=== PATIENT | female | born 1955 | race Caucasian/White ===

== ENCOUNTER 2024-02-07 21:49 | Emergency (ER) | payer BC ==
[~2024-02-07] VITALS: Ht 162.6 cm; Wt 48.1 kg
[2024-02-07] MEDS ORDERED: ONDANSETRON 4 MG/2 ML VIAL ONE (22:00)
[2024-02-07 22:15] LABS: BASOPHILS # (AUTO) 0.1 K/UL (0.0-0.2); BASOPHILS % (AUTO) 1.2 % (0.0-2.0); EOSINOPHILS # (AUTO) 0.1 K/uL (0.0-0.7); EOSINOPHILS % (AUTO) 1.1 % (0.0-7.0); HEMATOCRIT 41.4 % (31.2-41.9); HEMOGLOBIN 13.5 g/dL (10.9-14.3); LYMPHOCYTES % (AUTO) 29.1 % (20.5-51.5); MEAN CORPUSCULAR HEMOGLOBIN 30.4 uug (24.7-32.8); MEAN CORPUSCULAR HGB CONC 33 g/dL (32.3-35.6); MEAN CORPUSCULAR VOLUME 93.1 fL (75.5-95.3); MONOCYTES # (AUTO) 0.2 K/uL (0.1-1.30); MONOCYTES % (AUTO) 3.3 % (0.0-11.0); NEUTROPHILS # (AUTO) 4.5 K/uL (1.8-8.9); NEUTROPHILS % (AUTO) 65.3 % (38.5-71.5); PLATELET COUNT (AUTO) 273 K/uL (179-408); RED BLOOD CELL COUNT(AUTO) 4.44 MIL/uL (3.63-4.92); RED CELL DISTRIBUTION WIDTH 14.2 % (12.3-17.7); WHITE BLOOD COUNT (AUTO) 6.8 K/uL (3.8-11.8)
[2024-02-07] MEDS: ONDANSETRON 4 MG/2 ML VIAL IV ONE (22:18)
[2024-02-07] MEDS: IV NORMAL SALINE 1000 ML BAG IV ONE ×2 (22:18→23:16)
[2024-02-07 22:22] LABS: DIFFERENTIAL COMMENT 1
[2024-02-07 22:24] LABS: CREATININE 0.6 mg/dL (0.6-1.3); POTASSIUM 3.2 mmol/L (3.5-5.1)
[2024-02-07 22:30] LABS: ALBUMIN 3.9 g/dL (3.4-5.0); BILIRUBIN,DIRECT 0.1 mg/dL (0.0-0.2); BILIRUBIN,TOTAL 0.3 mg/dL (0.2-1.0); TOTAL PROTEIN, SERUM 6.7 g/dL (6.4-8.2)
[2024-02-07] MEDS ORDERED: ONDA4TAB11 PO (23:41)
[2024-02-08 00:41] VITALS: BP 98/71; O2SAT 98
== END 2024-02-08 00:30 | disposition home or self-care (01) ==
LOC: ER 21:56
DX: R11.2 Nausea with vomiting, unspecified (principal); E03.9 Hypothyroidism, unspecified; Z79.899 Other long term (current) drug therapy
CPT/HCPCS: 36415; 71045; 83690; 84484; 85025; 93005; A4606; A4663; J2405; J7040